=== PATIENT | female | born 1940 | race Native Hawaiian/Other Pacific Islander ===

== ENCOUNTER 2016-05-20 09:54 | Outpatient (CLI) | payer OTHER, MEDICARE ==
[2016-05-20 10:16] LABS: PLATELET COUNT 289 K/uL (152-353)
[2016-05-20 11:17] LABS: POTASSIUM 4.8 mmol/L (3.6-5.2); SODIUM 137 mmol/L (136-145)
== END 2016-05-20 19:13 | disposition home or self-care (01) ==
LOC: LABW 09:54
PROVIDERS: Internal Medicine
DX: E11.9 Type 2 diabetes mellitus without complications (principal)
CPT/HCPCS: 36415; 80053; 80061; 81000; 82043; 82570; 83036; 84439; 84443; 85027

== ENCOUNTER 2016-09-25 09:05 | Observation (INO) | payer OTHER, MEDICARE ==
[~2016-09-25] VITALS: Ht 165.1 cm; Wt 70.3 kg
[2016-09-25 11:35] VITALS: BP 161/69; TEMP 97.4; Ht 165.1 cm; Wt 70.3 kg
[2016-09-25 12:00] VITALS: BP 158/64; TEMP 97.8
[2016-09-25 12:23] LABS: POTASSIUM 3.7 mmol/L (3.6-5.2); SODIUM 135 mmol/L (136-145)
[2016-09-25 12:52] LABS: PARTIAL THROMBOPLASTIN TIME 21.7 SECONDS (24.5-33.6)
[2016-09-25 13:00] LABS: PLATELET COUNT 288 K/uL (152-353)
[2016-09-25] MEDS ORDERED: VERA180T12 PO (14:02)
[2016-09-25] MEDS ORDERED: SIMV40TA57 (14:05)
[2016-09-25] MEDS ORDERED: METFTAB PO (14:06)
[2016-09-25] MEDS ORDERED: ROPINIROLE0.5 MG PO (14:08)
[2016-09-25] MEDS ORDERED: ALLERGY RELIEF25 MG PO (14:33)
[2016-09-25] MEDS ORDERED: EYE VITAMINS PO (14:34)
[2016-09-25] MEDS ORDERED: MELOXICAM15 MG PO (14:35)
[2016-09-25] MEDS ORDERED: BENA10TA3 PO (14:36)
[2016-09-25] MEDS ORDERED: TIMOPTIC OCU0.25 % OP (14:37)
[2016-09-25 16:00] VITALS: BP 137/62; TEMP 98.6
--- NOTE | 2016-09-25 16:52 | NUR ---
TAMANNA MEDELLIN AND CARLOS ALBERTO APPLIED TO PT.
[2016-09-25 20:00] VITALS: BP 131/64; TEMP 98.4
[2016-09-26] VITALS: BP 135/60; TEMP 98.4
[2016-09-26 04:00] VITALS: BP 125/70; TEMP 98.3
[2016-09-26 04:36] LABS: PLATELET COUNT 242 K/uL (152-353); SODIUM 136 mmol/L (136-145)
[2016-09-26 08:00] VITALS: BP 134/63; TEMP 97.7
--- NOTE | 2016-09-26 08:30 | NUR ---
PATIENT SITTING UP IN BEDSIDE CHAIR, EATING BREAKFAST. DAUGHTER AT BEDSIDE. PATIENT STATES SHE IS FEELING GOOD THIS AM AND THAT HER VISION IS MUCH BETTER TODAY. SHE STILL HAS SLIGHT BLURRINESS WHEN SHE TURNS HER HEAD FROM SIDE TO SIDE. SHE IS HOPING TO GO HOME TODAY. PATIENT HAS NO REQUESTS AT THIS TIME, INSTRUCTED TO CALL FOR ASSISTANCE IF NEEDED.
[2016-09-26 12:00] VITALS: BP 122/56; TEMP 98
[2016-09-26 16:00] VITALS: BP 139/69; TEMP 98
--- NOTE | 2016-09-26 16:20 | NUR ---
DR. RUTH HAS BEEN IN TO TALK WITH PATIENT AND HER DAUGHTER. PATIENT GONE TO RADIOLOGY VIA WHEELCHAIR FOR MRI.
--- NOTE | 2016-09-26 17:30 | NUR ---
MRI RESULTS CALLED TO DR. RUTH. DISCHARGE ORDERS RECEIVED AND REVIEWED WITH PATIENT AND HER DAUGHTER. PRESCRIPTION TO BE CALLED IN TO [facility] TOMORROW BY EYAL ARGUELLO. IV REMOVED, BANDAID APPLIED.
--- NOTE | 2016-09-26 18:10 | NUR ---
PATIENT ESCORTED TO HOSPITAL EXIT VIA WHEELCHAIR AND DISCHARGED HOME WITH DAUGHTER IN STABLE CONDITION.
== END 2016-09-26 18:10 | disposition home or self-care (01) ==
LOC: MED/SURG 09:05
PROVIDERS: Emergency Medicine; ADMIT Internal Medicine
DX: R42 Dizziness and giddiness (principal); H53.8 Other visual disturbances; I10 Essential (primary) hypertension; E11.9 Type 2 diabetes mellitus without complications
CPT/HCPCS: 36415; 80053; 81000; 82550; 82948; 83735; 84443; 84484; 85027; 85610; 85730; 93005; 96365; 96366; 99220; G0378; G0379

== ENCOUNTER 2016-11-18 10:29 | Outpatient (CLI) | payer OTHER, MEDICARE ==
[~2016-11-18 10:29] MED LIST: ALLERGY RELIEF25 MG PO; BENA10TA3 PO; EYE VITAMINS PO; MELOXICAM15 MG PO; METFTAB PO; ROPINIROLE0.5 MG PO; SIMV40TA57; TIMOPTIC OCU0.25 % OP; VERA180T12 PO
[2016-11-18 10:55] LABS: PLATELET COUNT 260 K/uL (152-353)
[2016-11-18 11:13] LABS: POTASSIUM 4.2 mmol/L (3.6-5.2); SODIUM 136 mmol/L (136-145)
== END 2016-11-18 11:30 | disposition home or self-care (01) ==
LOC: LABW 10:29
PROVIDERS: Internal Medicine
DX: E11.9 Type 2 diabetes mellitus without complications (principal); R82.99 Other abnormal findings in urine
CPT/HCPCS: 36415; 80053; 80061; 81000; 82043; 82570; 83036; 84443; 85027; 87086; 87088

== ENCOUNTER 2021-08-14 14:01 | Emergency (ER) | payer OTHER ==
[~2021-08-14] VITALS: Ht 162.6 cm; Wt 71.7 kg
[2021-08-14 14:06] VITALS: BP 165/67; TEMP 97.8
== END 2021-08-14 14:47 | disposition home or self-care (01) ==
LOC: ED 14:01
DX: B02.8 Zoster with other complications (principal)
CPT/HCPCS: 96372; 99283; J1100; J2270